=== PATIENT | female | born 1975 | race Caucasian/White ===

== ENCOUNTER 2017-01-23 14:42 | Emergency (ER) | payer SELFPAY ==
[2017-01-23] MEDS ORDERED: HYDROcodone/ACETAMIN 5-325 MG* 1 TAB PO ONE (15:23)
[2017-01-23] MEDS ORDERED: Amoxicillin/Clavulanate TAB* 875 MG PO ONE (15:24)
--- NOTE | 2017-01-23 17:03 | UC ---
Ear Complaint HPI - HPI Summary HPI Summary: Patient presents with right ear pain which has been worsening over the past week with 10/10 onset today. She endorses drainage from the ear and decreased hearing. She denies recent swimming or viral syndrome. Denies sick contacts or travel. Takes no medications. She is tearful on exam. - History of Current Complaint Chief Complaint: UCEar Stated Complaint: RIGHT EAR PAIN/CLOG Time Seen by Provider: 01/23/17 15:23 Hx Obtained From: Patient Hx Last Menstrual Period: 01/07/17 ?: No Onset/Duration: Sudden Onset Severity Initially: Moderate Severity Currently: Severe Pain Intensity: 10 Pain Scale Used: 0-10 Numeric Aggravating Factors: Nothing Alleviating Factors: Nothing Associated Signs/Symptoms: Positive: Discharge, Hearing Loss, Swelling @ - Allergies/Home Medications Allergies/Adverse Reactions: Allergies Allergy/AdvReac Type Severity Reaction Status Date / Time No Known Allergies Allergy Verified 01/23/17 14:50 Home Medications: Home Medications oxyCODONE TAB* [Roxycodone TAB 5 mg*] 10 mg PO Q6HR PRN 01/23/17 [History Confirmed 01/23/17] PMH/Surg Hx/FS Hx/Imm Hx Previously Healthy: Yes - Surgical History Surgical History: Yes Surgery Procedure, Year, and Place: partial thyroidectomy r/t cysts, - Family History Known Family History: Positive: Unknown - Social History Occupation: Employed Full-time Lives: With Family Alcohol Use: Occasionally Substance Use Type: None Smoking Status (MU): Former Smoker Household Exposure Type: Cigarettes Review of Systems Constitutional: Negative Skin: Negative Eyes: Negative ENT: Ear Ache Respiratory: Negative Cardiovascular: Negative Motor: Negative Neurovascular: Negative Musculoskeletal: Negative Neurological: Negative Psychological: Negative All Other Systems Reviewed And Are Negative: Yes Physical Exam Triage Information Reviewed: Yes Appearance: Well-Appearing, No Pain Distress, Well-Nourished Vital Signs Reviewed: Yes Eye Exam: Normal Eyes: Positive: Conjunctiva Clear ENT: Positive: TM bulging, TM red, Other: - Drainage from right ear Neck exam: Normal Neck: Positive: Supple, Nontender, No Lymphadenopathy Respiratory Exam: Normal Respiratory: Positive: Chest non-tender, Lungs clear Cardiovascular Exam: Normal Cardiovascular: Positive: RRR, No Murmur Musculoskeletal Exam: Normal Musculoskeletal: Positive: Strength Intact, ROM Intact Neurological Exam: Normal Neurological: Positive: Alert Psychological: Positive: Normal Response To Family, Age Appropriate Behavior Skin Exam: Normal Ear Complaint Course/Dx - Course Course Of Treatment: Pain medication given on arrival to . Evaluated for ear pain. TM's with erythema and drainage. 10/10 pain. Augmentin and otic drops prescribed for otitis externa with otitis media component on exam. Pain medication given. - Differential Dx/Diagnosis Differential Diagnosis/HQI/PQRI: Otitis Externa, Otitis Media, Perforated TM Provider Diagnoses: Otititis externa Discharge - Discharge Plan Condition: Stable Disposition: HOME Prescriptions: Amoxicillin/Clavulanate TAB* [Augmentin TAB 875*] 875 mg PO BID #11 tab Ofloxacin 0.3% OTIC.DANA* [Floxin 0.3% OTIC.DANA*] 10 drop .SEE ORDER DAILY #1 btl oxyCODONE/Acetamin 5/325 MG* [Percocet 5/325 TAB*] 1 tab PO Q4H PRN #6 tab MDD 6 PRN Reason: Pain Patient Education Materials: Otitis Externa (ED) Referrals: No Primary Care Phys,NOPCP [Primary Care Provider] - Additional Instructions: Follow up with ENT if symptoms persist. Return to for worsening symptoms or fever develops.
== END 2017-01-23 17:07 | disposition home or self-care (01) ==
LOC: UCEAST 14:42
DX: H60.91 Unspecified otitis externa, right ear (principal); Z87.891 Personal history of nicotine dependence
CPT/HCPCS: 99212; A9270-GY; G0463

== ENCOUNTER 2017-02-21 12:37 | Emergency (ER) | payer SELFPAY ==
[2017-02-21 12:50] VITALS: BP 115/76
--- NOTE | 2017-02-21 13:00 | UC ---
Ear Complaint HPI - HPI Summary HPI Summary: 41 YEAR OLD FEMALE PRESENTS WITH COMPLAINS OF RIGHT EAR PAIN. - History of Current Complaint Chief Complaint: UCEar Stated Complaint: EAR PAIN Time Seen by Provider: 02/21/17 12:56 Hx Last Menstrual Period: 02/11/17 - Allergies/Home Medications Allergies/Adverse Reactions: Allergies Allergy/AdvReac Type Severity Reaction Status Date / Time No Known Allergies Allergy Verified 02/21/17 12:49 PMH/Surg Hx/FS Hx/Imm Hx - Surgical History Surgical History: Yes Surgery Procedure, Year, and Place: partial thyroidectomy r/t cysts, - Family History Known Family History: Positive: Unknown - Social History Alcohol Use: Occasionally Substance Use Type: Marijuana Smoking Status (MU): Former Smoker Household Exposure Type: Cigarettes Review of Systems Constitutional: Negative Skin: Negative Eyes: Negative ENT: Ear Ache Respiratory: Negative Cardiovascular: Negative Gastrointestinal: Negative Genitourinary: Negative Motor: Negative Neurovascular: Negative Musculoskeletal: Negative Neurological: Negative Psychological: Negative All Other Systems Reviewed And Are Negative: Yes Physical Exam Triage Information Reviewed: Yes Vital Signs: Initial Vital Signs Temp 37.3 C 02/21/17 12:45 Pulse 87 02/21/17 12:45 Resp 20 02/21/17 12:45 BP 115/76 02/21/17 12:45 Pulse Ox 98 02/21/17 12:45 Eye Exam: Normal ENT: Positive: TM bulging, TM red, Other: - RIGHT MIDDLE EAR RETRACTION Dental Exam: Normal Neck exam: Normal Neck: Positive: 1 Respiratory Exam: Normal Cardiovascular Exam: Normal Abdominal Exam: Normal Musculoskeletal Exam: Normal Neurological Exam: Normal Psychological Exam: Normal Skin Exam: Normal Ear Complaint Course/Dx - Differential Dx/Diagnosis Provider Diagnoses: RIGHT EAR PAIN. RIGHT AOM Discharge - Discharge Plan Condition: Stable Disposition: HOME Prescriptions: Azithromyxin KENYETTA (NF) [Z-Kenyetta (Zithromax) 250 mg tabs #6] 2 tab PO .TODAY, THEN 1 DAILY #6 tab Naproxen [Naproxen DR 500 MG TAB] 500 mg PO BID PC PRN #30 tab PRN Reason: Pain - Moderate To Severe Neomyc/Polym/HC 1% OTIC SUSP* [Cortisporin Otic Susp 1%*] 4 drop RIGHT EAR QID # 1 btl Patient Education Materials: Earache (ED) Referrals: No Primary Care Phys,NOPCP [Medical Doctor] -
== END 2017-02-21 13:10 | disposition home or self-care (01) ==
LOC: UCEAST 12:37
DX: H92.01 Otalgia, right ear (principal); H66.91 Otitis media, unspecified, right ear; Z87.891 Personal history of nicotine dependence
CPT/HCPCS: 99212; G0463

== ENCOUNTER 2017-07-13 08:55 | Emergency (ER) | payer SELFPAY ==
[2017-07-13] MEDS ORDERED: Orphenadrine Citrate IV* 30 MG/ML 2 ML VIAL IV ONE (09:19)
[2017-07-13] MEDS ORDERED: Dexamethasone IV* 4 MG/ML 1 ML (4 MG) IM ONE (09:19)
[2017-07-13] MEDS ORDERED: Ketorolac INJ* 60 MG/2 ML VIAL IM ONE (09:22)
[2017-07-13] MEDS ORDERED: Orphenadrine Citrate IV* 30 MG/ML 2 ML VIAL IM ONE (09:35)
--- NOTE | 2017-07-13 11:43 | RAD ---
INDICATION: Back pain. COMPARISON: Correlation is made with a prior MRI of the lumbar spine from June 29, 2009. TECHNIQUE: 3 views of the lumbar spine were obtained including lateral, AP and a coned-down lateral view of the lumbar sacral junction. FINDINGS: There is a mild lumbar scoliosis convex toward the left side. The vertebra are otherwise in normal alignment. No fracture is seen. There is mild to moderate disc space narrowing and endplate hypertrophic changes present at the L1-L2, L4-L5 and L5-S1 levels. IMPRESSION: MILD TO MODERATE DEGENERATIVE DISC DISEASE.
[2017-07-13 12:10] VITALS: BP 125/78
--- NOTE | 2017-07-14 07:37 | ED ---
Ty Mcallister Angela, scribed for Srini Rodriguez MD on 07/13/17 at 0920 . Back Pain - HPI Summary HPI Summary: This pt is a 41 y/o female presenting to [facility] c/o acute on chronic back pain. Pt reports she injured her back yesterday while lifting a box at work around 1600. She states it worsened throughout the day yesterday. Pt notes her back pain radiates to her left leg, laterally, up to her knees. Pt notes difficulty ambulating secondary to pain. Her pain is aggravated with movement and ambulation. She denies bowel or urinary incontinence, bowel dysfunction, numbness, weakness or tingling in LE. Pt has drank 2 shots of alcohol yesterday at 2300. Pt has chronic back pain for which she used to see an orthopedist. Pt denies taking any pain medication. She states she has not had this pain in a long time. PMHx includes degenerative disc disease, arthritis spine. Pt works in a [employer] and [employer]. - History of Current Complaint Chief Complaint: EDBackInjuryPain Stated Complaint: BACK PAIN Time Seen by Provider: 07/13/17 09:12 Hx Obtained From: Patient Hx Last Menstrual Period: 02/11/17 Onset/Duration: Lasting Hours, Still Present Onset/Duration: Started Hours Ago, Still Present Timing: Constant, Lasting Hours Back Pain Location: Radiates To - left leg, laterally Severity Currently: Severe Pain Intensity: 8 Pain Scale Used: 0-10 Numeric Aggravating Symptom(s): Movement, Walking Associated Signs And Symptoms: Negative: Weakness, Numbness, Tingling, Abdominal Pain, Bladder Incontinence, Bowel Incontinence - Allergies/Home Medications Allergies/Adverse Reactions: Allergies Allergy/AdvReac Type Severity Reaction Status Date / Time No Known Allergies Allergy Verified 02/21/17 12:49 PMH/Surg Hx/FS Hx/Imm Hx Endocrine/Hematology History: Reports: Hx Thyroid Disease GI History: Reports: Other GI Disorders - pelvic pain n/v. denies changes bowel or bladder habits Musculoskeletal History: Reports: Other Musculoskeletal History - degenerative disc disease, arthritis spine - Surgical History Surgery Procedure, Year, and Place: partial thyroidectomy r/t cysts, Infectious Disease History: No Infectious Disease History: Denies: Traveled Outside the [place] in Last 30 Days - Family History Known Family History: Positive: Cardiac Disease, Hypertension, Diabetes - Social History Alcohol Use: Occasionally Substance Use Type: Reports: Marijuana Smoking Status (MU): Former Smoker Review of Systems Negative: Fever, Chills Eyes: Negative ENT: Negative Cardiovascular: Negative Respiratory: Negative Gastrointestinal: Negative Negative: incontinence - urinary or bowel, other - bowel dysfunction Musculoskeletal: Other - back pain, left leg pain Skin: Negative Neurological: Negative All Other Systems Reviewed And Are Negative: Yes Physical Exam - Summary Physical Exam Summary: VITAL SIGNS: Reviewed. GENERAL: Patient is a well-developed and nourished female who is lying comfortable in the stretcher. Patient is not in any acute respiratory distress. HEAD AND FACE: No signs of trauma. No ecchymosis, hematomas or skull depressions. No sinus tenderness. EYES: PERRLA, EOMI x 2, No injected conjunctiva, no nystagmus. EARS: Hearing grossly intact. Ear canals and tympanic membranes are within normal limits. MOUTH: Oropharynx within normal limits. NECK: Supple, trachea is midline, no adenopathy, no JVD, no carotid bruit, no c- spine tenderness, neck with full ROM. CHEST: Symmetric, no tenderness at palpation LUNGS: Clear to auscultation bilaterally. No wheezing or crackles. CVS: Regular rate and rhythm, S1 and S2 present, no murmurs or gallops appreciated. ABDOMEN: Soft, non-tender. No signs of distention. No rebound no guarding, and no masses palpated. Bowel sounds are normal. EXTREMITIES: FROM in all major joints, no edema, no cyanosis or clubbing. MSK: Pt is moving and came to the ED ambulating. Pt jumps with pain as soon as I touch the skin, without allowing me to assess her spine adequately. NEURO: Alert and oriented x 3. No acute neurological deficits. Speech is normal and follows commands. SKIN: Dry and warm Triage Information Reviewed: Yes Vital Signs On Initial Exam: Initial Vitals Temp Pulse Resp BP Pulse Ox 98.7 F 91 20 146/83 98 07/13/17 08:58 07/13/17 08:58 07/13/17 08:58 12 08:58 07/13/17 08:58 Vital Signs Reviewed: Yes Diagnostics - Vital Signs Vital Signs Temp Pulse Resp BP Pulse Ox 07/13/17 08:58 98.7 F 91 20 146/83 98 - Laboratory Lab Statement: Any lab studies that have been ordered have been reviewed, and results considered in the medical decision making process. - Radiology Lumbar spine XR Xray Interpretation: Positive (See Comments) - IMPRESSION: Mild to moderate degenerative disc disease. ED physician has reviewed this radiology report and agrees. Radiology Interpretation Completed By: Radiologist Re-Evaluation - Re-Evaluation First Eval Re-Evaluation Time: 11:57 Comment: I reviewed the XR result with the pt. Back Pain Course/Dx - Course Assessment/Plan: This pt is a 41 y/o female presenting to [facility] c/o acute on chronic back pain. Pt reports she injured her back yesterday while lifting a box at work around 1600. She states it worsened throughout the day yesterday. Pt notes her back pain radiates to her left leg, laterally, up to her knees. Pt notes difficulty ambulating secondary to pain. Her pain is aggravated with movement and ambulation. She denies bowel or urinary incontinence, bowel dysfunction, numbness, weakness or tingling in LE. Pt has drank 2 shots of alcohol yesterday at 2300. Pt has chronic back pain for which she used to see an orthopedist. Pt denies taking any pain medication. She states she has not had this pain in a long time. PMHx includes degenerative disc disease, arthritis spine. Pt works in a [employer]. Lumbar spine XR shows mild to moderate degenerative disc disease. In the ED course, the pt was given Decadron, toradol, and norflex. After these medications, the pts symptoms improved and the pt is feeling better. Therefore, she will be discharged home with follow up from her PCP. Pt is ambulating out of Emergency Department. Pt will be discharge home with [place], Motrin, Robaxin, Medrol dosepak. - Diagnoses Provider Diagnoses: Back pain Discharge - Discharge Plan Condition: Stable Disposition: HOME Prescriptions: HYDROcodone/ACETAMIN 5-325 MG* [[place] 5-325 TAB*] 1 tab PO Q6H PRN #10 tab MDD 4 PRN Reason: Pain Ibuprofen TAB* [Motrin TAB* 600 MG] 600 mg PO Q8H PRN #30 tab PRN Reason: Pain Methocarbamol [Robaxin-750 MG TAB] 750 mg PO TID #9 tab Methylprednisolone [Medrol Dosepak 4 MG*] 0 mg PO .SEE KENYETTA INSTRUCTION #1 kenyetta Patient Education Materials: Back Pain (ED) Referrals: No Primary Care Phys,NOPCP [Primary Care Provider] - [facility] [place]] Additional Instructions: Please follow up with your primary care provider. If you need to establish a new primary, please call the [facility] [place]. RETURN TO THE ED FOR ANY WORSENING OR NEW SYMPTOMS. The documentation as recorded by the Ty odonnell Angela accurately reflects the service I personally performed and the decisions made by me, Srini Rodriguez MD.
== END 2017-07-13 12:08 | disposition home or self-care (01) ==
LOC: ED 08:55
DX: M54.9 Dorsalgia, unspecified (principal); G89.29 Other chronic pain; Z87.891 Personal history of nicotine dependence; E07.9 Disorder of thyroid, unspecified; M51.36 Other intervertebral disc degeneration, lumbar region
CPT/HCPCS: 72100; 96372; 96374; 99282; J1100; J1885; J2360

== ENCOUNTER 2018-06-20 18:42 | Emergency (ER) | payer SELFPAY ==
[2018-06-20] MEDS ORDERED: Lidocaine PATCH 5%* 1 PATCH TRANSDERM ONE (19:18)
[2018-06-20] MEDS ORDERED: HYDROcodone/ACETAMIN 5-325 MG* 1 TAB PO ONE (19:21)
[2018-06-20] MEDS ORDERED: Ketorolac INJ* 30 MG/ML 1 ML VIAL IM ONE (19:21)
--- NOTE | 2018-06-20 19:28 | ED ---
Back Pain - HPI Summary HPI Summary: 42 year old female presents with back pain for the past week. States she injured her back lifting at work. She admits to chronic back pain and this pain is in the same location. She admits to numbness and tingling down her leg. She denies any fevers. No urinary symptoms. No loss of bowel or bladder or saddle anesthesias. No fevers. Still able to ambulate. Has been taking Tylenol and ibuprofen for pain with minimal relief. She used to have a back brace that helped but her ex throughout it out. No abdominal pain. - History of Current Complaint Chief Complaint: EDBackInjuryPain Stated Complaint: BACK PAIN Time Seen by Provider: 06/20/18 18:57 Hx Last Menstrual Period: 02/11/17 Pain Intensity: 8 - Allergies/Home Medications Allergies/Adverse Reactions: Allergies Allergy/AdvReac Type Severity Reaction Status Date / Time No Known Allergies Allergy Verified 06/20/18 18:46 PMH/Surg Hx/FS Hx/Imm Hx Endocrine/Hematology History: Reports: Hx Thyroid Disease Respiratory History: Denies: Hx Asthma GI History: Reports: Other GI Disorders - pelvic pain n/v. denies changes bowel or bladder habits Musculoskeletal History: Reports: Other Musculoskeletal History - degenerative disc disease, arthritis spine - Surgical History Surgery Procedure, Year, and Place: partial thyroidectomy r/t cysts, Infectious Disease History: No Infectious Disease History: Denies: Traveled Outside the [place] in Last 30 Days - Family History Known Family History: Positive: Unknown, Cardiac Disease, Hypertension, Diabetes - Social History Alcohol Use: Occasionally Substance Use Type: Reports: Marijuana Smoking Status (MU): Former Smoker Review of Systems Negative: Fever Negative: Chest Pain Negative: Shortness Of Breath Positive: Myalgia - back pain All Other Systems Reviewed And Are Negative: Yes Physical Exam Triage Information Reviewed: Yes Vital Signs On Initial Exam: Initial Vitals Temp Pulse Resp BP Pulse Ox 97.8 F 88 16 160/93 97 06/20/18 18:43 06/20/18 18:43 06/20/18 18:43 06/20/18 18:43 06/20/18 18:43 Vital Signs Reviewed: Yes Appearance: Positive: Well-Appearing Skin: Positive: Warm, Dry Head/Face: Positive: Normal Head/Face Inspection Eyes: Positive: Normal, Conjunctiva Clear ENT: Positive: Pharynx normal Respiratory/Lung Sounds: Positive: Clear to Auscultation, Breath Sounds Present Cardiovascular: Positive: Normal, RRR Musculoskeletal: Positive: Strength/ROM Intact - back with pain, Other - tenderness lower back, pos SLR, patella reflex intact, sensation grossly intact Neurological: Positive: Normal Gait, Babinski Bilateral - normal Psychiatric: Positive: Normal Diagnostics - Vital Signs Vital Signs Temp Pulse Resp BP Pulse Ox 06/20/18 18:43 97.8 F 88 16 160/93 97 - Laboratory Lab Statement: Any lab studies that have been ordered have been reviewed, and results considered in the medical decision making process. - CT back CT Interpretation Completed By: Radiologist Summary of CT Findings: IMPRESSION: 1. Multilevel degenerative disc and facet disease without appreciable change. from the comparison study. 2. No acute fracture, subluxation, or aggressive osseous lesion. 3. 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 No appreciable change from. comparison study. Re-Evaluation - Re-Evaluation First Eval Re-Evaluation Time: 20:50 Change: Improved Comment: feeling better after toradol, lidocaine and norco Back Pain Course/Dx - Course Course Of Treatment: 42 year old female presents with back pain for the past week. States she injured her back lifting at work. She admits to chronic back pain and this pain is in the same location. She admits to numbness and tingling down her leg. She denies any fevers. No urinary symptoms. No loss of bowel or bladder or saddle anesthesias. No fevers. Still able to ambulate. Has been taking Tylenol and ibuprofen for pain with minimal relief. She used to have a back brace that helped but her ex throughout it out. No abdominal pain. on exam has tenderness lower back. pos SLR. neurovascular intact. gave pain medication and feeling better. urine shows potenital uti and after further discussion with patient states has been having uti sx so will treat with macrobid. told will treat back pain with flexeril and lidocaine patch. patient understand and agrees with plan. - Diagnoses Differential Diagnosis/HQI/PQRI: Positive: Arthritis, Herniated Disc, Strain Provider Diagnoses: Back pain, UTI (urinary tract infection) Discharge - Sign-Out/Discharge Documenting (check all that apply): Patient Departure - Discharge Plan Condition: Good Disposition: HOME Prescriptions: Cyclobenzaprine TAB* [Flexeril 10 MG TAB*] 10 mg PO TID PRN #21 tab PRN Reason: Pain Lidocaine PATCH 5%* [Lidoderm 5% Patch*] 1 patch TRANSDERM DAILY #5 patch Nitrofurantoin Monohyd/M-Cryst [Macrobid 100 mg Capsule] 100 mg PO BID #13 cap Patient Education Materials: Back Pain (ED) Referrals: [facility] [place] [facility] [Outside] Additional Instructions: Take muscle relaxers three times a day Apply lidocaine patches to area for up to 12 hours in one 24 hour period take macrobid twice a day for 7 days Use ibuprofen or Tylenol for pain every 6 hours ice/heat area, move as much as possible est care with primary Return to ED if develop any new or worsening symptoms - Billing Disposition and Condition Condition: GOOD Disposition: Home
[2018-06-20 20:04] LABS: Urine Appearance Cloudy; Urine Blood Negative (Negative); Urine Color Yellow; Urine Ketones Negative (Negative); Urine Protein Negative (Negative); Urine Red Blood Cell Absent (Absent); Urine Specific Gravity 1.018 (1.010-1.030); Urine Urobilinogen Negative (Negative); Urine White Blood Cell Absent (Absent)
[2018-06-20] MEDS ORDERED: Nitrofurantoin Macrocrystals* 100 MG CAP PO ONE (20:42)
[2018-06-20 21:13] VITALS: BP 135/77
--- NOTE | 2018-06-22 18:42 | ED ---
Progress - Progress Note Progress Note: Patient's final urine culture reveals greater than 100,000 Escherichia coli. Patient was started on Macrobid to which organism is sensitive. No change in treatment at this time. Re-Evaluation - Re-Evaluation First Eval Re-Evaluation Time: 20:50 Change: Improved Comment: feeling better after toradol, lidocaine and norco Course/Dx - Course Course Of Treatment: 42 year old female presents with back pain for the past week. States she injured her back lifting at work. She admits to chronic back pain and this pain is in the same location. She admits to numbness and tingling down her leg. She denies any fevers. No urinary symptoms. No loss of bowel or bladder or saddle anesthesias. No fevers. Still able to ambulate. Has been taking Tylenol and ibuprofen for pain with minimal relief. She used to have a back brace that helped but her ex throughout it out. No abdominal pain. on exam has tenderness lower back. pos SLR. neurovascular intact. gave pain medication and feeling better. urine shows potenital uti and after further discussion with patient states has been having uti sx so will treat with macrobid. told will treat back pain with flexeril and lidocaine patch. patient understand and agrees with plan. - Diagnoses Provider Diagnoses: Back pain, UTI (urinary tract infection) Discharge - Sign-Out/Discharge Documenting (check all that apply): Post-Discharge Follow Up - Discharge Plan Condition: Good Disposition: HOME Prescriptions: Cyclobenzaprine TAB* [Flexeril 10 MG TAB*] 10 mg PO TID PRN #21 tab PRN Reason: Pain Lidocaine PATCH 5%* [Lidoderm 5% Patch*] 1 patch TRANSDERM DAILY #5 patch Nitrofurantoin Monohyd/M-Cryst [Macrobid 100 mg Capsule] 100 mg PO BID #13 cap Patient Education Materials: Back Pain (ED) Referrals: [facility] [place] [facility] [Outside] Additional Instructions: Take muscle relaxers three times a day Apply lidocaine patches to area for up to 12 hours in one 24 hour period take macrobid twice a day for 7 days Use ibuprofen or Tylenol for pain every 6 hours ice/heat area, move as much as possible est care with primary Return to ED if develop any new or worsening symptoms - Billing Disposition and Condition Condition: GOOD Disposition: Home
== END 2018-06-20 21:11 | disposition home or self-care (01) ==
LOC: ED 18:42
DX: M54.9 Dorsalgia, unspecified (principal); N39.0 Urinary tract infection, site not specified; Z87.891 Personal history of nicotine dependence
CPT/HCPCS: 72131; 81003; 81015; 87077; 87086; 87186; 96372; 99282; A9270-GY; J1885